=== PATIENT | female | born 1985 | race Caucasian/White ===

== ENCOUNTER → 2017-11-24 10:36 | Outpatient (CLI) | payer OTHER, SELFPAY ==
[2017-11-24 13:22] LABS: Absolute Lymphocyte Count 2.84 X10^3/ul (0.83-4.51); Absolute Neutrophil Count 3.8 X10^3/uL (2.0-7.7); Basophil# 0.02 X10^3/uL; Basophil% 0.3 % (0-1); Eosinophil# 0.07 X10^3/uL; Hematocrit 37.7 % (37-47); Hemoglobin 12.4 g/dl (12.0-15.0); Lymphocyte # 2.84 X10^3/ul (4.0); Lymphocyte % 40.8 % (19-41); Mean Corp Hgb Conc 32.9 g/gl (32-36); Mean Corpuscular Hgb 31.5 pg (27.0-32.0); Mean Corpuscular Volume 95.7 fL (81-99); Mean Platelet Vol. 10.9 fl (6.2-12.0); Monocyte# 0.23 X10^3/uL; Monocyte% 3.3 % (0-10); Neutrophil # 3.79 X10^3/uL (2.7-7.7); Neutrophil % 54.5 % (47-70); Platelet Count 216 K/mm3 (150-450); RBC Distribution Width CV 12.1 % (11.6-14.6); RBC Distribution Width SD 42.1 fl (35.1-43.9); Red Blood Count 3.94 M/mm3 (4.2-5.4)
[2017-11-24 13:35] LABS: POSITIVE COUNT NO; POSITIVE DIFFERENTIAL NO; POSITIVE MORPHOLOGY NO
[2017-11-24 13:39] LABS: Thyroid Stim Hormone (TSH) 1.26 uIU/mL (0.358-3.74)
== END ==
PROVIDERS: Visit Provider Nurse Practitioner Women's Health
DX: N92.1 Excessive and frequent menstruation with irregular cycle (principal)
CPT/HCPCS: 36415; 84443; 85025

== ENCOUNTER → 2017-11-29 12:30 | Outpatient (CLI) | payer OTHER, SELFPAY ==
--- NOTE | 2017-11-29 12:32 | US_ITS ---
STUDY: ULTRASOUND OF THE FEMALE PELVIS - COMPLETE REASON FOR EXAM: Female, 32 years old. Dysfunctional uterine bleeding LMP: November 20, 2017 TECHNIQUE: Transabdominal and Transvaginal TECHNICAL QUALITY: Adequate. COMPARISON: None. FINDINGS: The uterus is anteverted and is in a midline position. The uterus measures 8.4 x 5.7 x 3.9 cm. There is a Nabothian cyst of the cervix. The endometrium measures 4 mm in thickness, and is hyperechoic. There is no demonstrated endometrial mass. There is a prominent appearance of the inferior aspect of the uterus with an isodense appearing somewhat vascular region measuring 2.4 x 2.0 cm suggesting probable fibroid. I.U.D. - The patient does not have an I.U.D. The right ovary is visualized. The right ovary measures 1.4 x 1.8 x 2.0 cm. There is no right ovarian cyst or ovarian mass. There is no visualized right adnexal mass or complex lesion. There is normal arterial and normal venous vascularity. The left ovary is visualized. The left ovary measures 2.0 x 1.2 x 1.4 cm. There is no left ovarian cyst or ovarian mass. There is no visualized left adnexal mass or complex lesion. There is normal arterial and normal venous vascularity. There is no fluid in the cul-de-sac. The pre void volume of the bladder was 208 ml. Polycystic ovary disease: No. US/Pelvic (Non ) IMPRESSION: Probable fibroid measuring 2.4 x 2.0 cm. Normal appearing endometrium. The technologist describes that the patient was very tender and that the exam was limited by patient's pain. Recommend correlation with laboratory values and clinical exam. Electronically Signed: Audrey Sanderson MD at 18:00 EDT Tel , Service support ,
--- NOTE | 2017-11-29 12:32 | US_ITS ---
STUDY: ULTRASOUND OF THE FEMALE PELVIS - COMPLETE REASON FOR EXAM: Female, 32 years old. Dysfunctional uterine bleeding LMP: November 20, 2017 TECHNIQUE: Transabdominal and Transvaginal TECHNICAL QUALITY: Adequate. COMPARISON: None. FINDINGS: The uterus is anteverted and is in a midline position. The uterus measures 8.4 x 5.7 x 3.9 cm. There is a Nabothian cyst of the cervix. The endometrium measures 4 mm in thickness, and is hyperechoic. There is no demonstrated endometrial mass. There is a prominent appearance of the inferior aspect of the uterus with an isodense appearing somewhat vascular region measuring 2.4 x 2.0 cm suggesting probable fibroid. I.U.D. - The patient does not have an I.U.D. The right ovary is visualized. The right ovary measures 1.4 x 1.8 x 2.0 cm. There is no right ovarian cyst or ovarian mass. There is no visualized right adnexal mass or complex lesion. There is normal arterial and normal venous vascularity. The left ovary is visualized. The left ovary measures 2.0 x 1.2 x 1.4 cm. There is no left ovarian cyst or ovarian mass. There is no visualized left adnexal mass or complex lesion. There is normal arterial and normal venous vascularity. There is no fluid in the cul-de-sac. The pre void volume of the bladder was 208 ml. Polycystic ovary disease: No. US/Transvaginal Non- IMPRESSION: Probable fibroid measuring 2.4 x 2.0 cm. Normal appearing endometrium. The technologist describes that the patient was very tender and that the exam was limited by patient's pain. Recommend correlation with laboratory values and clinical exam. Electronically Signed: Audrey Sanderson MD at 18:00 EDT Tel , Service support ,
== END ==
PROVIDERS: Visit Provider Nurse Practitioner Women's Health
DX: N92.1 Excessive and frequent menstruation with irregular cycle (principal); N88.8 Other specified noninflammatory disorders of cervix uteri
CPT/HCPCS: 76830; 76856; 93976

== ENCOUNTER → 2017-12-08 15:05 | Outpatient (CLI) | payer OTHER, SELFPAY ==
--- NOTE | 2017-12-08 12:00 | EMB_PTH ---
PATIENT: CAROLYN ARCE LOC: [facility] U#:[id number] AGE/SX: 39/F ROOM: RE12/08/[address]: Dr. Kiki Kellogg MD : 1985 BED: DIS: SPEC #: [id number] RECD: 12/08/17 15:05 STATUS: BETY NAOMIE #: [id number] DEANN: 12/08/17 12:[address]: Kiki Kellogg DEPT: SURGICAL PATHOLOGY RECD BY: Rashid Wade ENTERED: 12/09/17 09:27 SP TYPE: ENDOM BX/C RODO DR: Dr. Alicia Quinn DO Tissues: Endometrium, NOS Procedures: Surgery Specimen Level IV HEADER OPERATION: Endometrial biopsy PRE-OP DIAGNOSIS: Abnormal uterine bleeding TISSUE SUBMITTED: Endometrium MICROSCOPIC DIAGNOSIS Endometrial biopsy: Weakly proliferative endometrium. Chronic endometritis. SJ:raj 12/10/17 MICROSCOPIC DESCRIPTION Slides are reviewed. GROSS DESCRIPTION Received in fixative is one container labeled with the patient's name and not further designated. The specimen consists of multiple dark brown fragments measuring in aggregate 1.2 x 1 x 0.2 totally submitted in one cassette. /AM:sp 12/09/17 TC: 3 CPT: 50409
== END ==
PROVIDERS: Visit Provider Obstetrics & Gynecology
DX: N93.9 Abnormal uterine and vaginal bleeding, unspecified (principal)
CPT/HCPCS: 88305

== ENCOUNTER 2018-02-17 08:21 | Day surgery (SDC) | payer OTHER, SELFPAY ==
--- NOTE | 2018-02-17 08:21 | DT_ITS ---
This patient was seen during an EMR downtime February 14, 2018 - February 21, 2018. This patient may have a combination of paper and electronic documentation or all paper documentation. All documentation is viewable within the e-chart portion of [employer] for each patient visit.
--- NOTE | 2018-02-17 10:34 | HYST_PTH ---
PATIENT: CAROLYN ARCE LOC: [facility] U#:[id number] AGE/SX: 32/F ROOM: RE02/17/[address]: Dr. Kiki Kellogg MD : 1985 BED: DIS: 02/18/2018 SPEC #: [id number] RECD: 02/17/18 12:20 STATUS: BETY NAOMIE #: [id number] DEANN: 02/17/18 10:[address]: Kiki Kellogg DEPT: SURGICAL PATHOLOGY RECD BY: Rashid Wade ENTERED: 02/18/18 08:54 SP TYPE: HYSTERECT OTHR DR: Dr. Alicia Quinn, DO Tissues: Uterus, NOS Procedures: Surgery Specimen Level V HEADER OPERATION: Total vaginal hysterectomy, bilateral salpingectomy PRE-OP DIAGNOSIS: Abnormal uterine bleeding TISSUE SUBMITTED: Uterus, cervix, bilateral fallopian tubes MICROSCOPIC DIAGNOSIS Uterus, cervix and bilateral fallopian tubes: Cervix ? chronic inflammation. Endometrium ? weakly proliferative endometrium. Myometrium ? focal superficial adenomyosis. Bilateral fallopian tubes ? focal mild chronic inflammation. BRIGITTE:radha 02/19/18 MICROSCOPIC DESCRIPTION Slides are reviewed. GROSS DESCRIPTION Received in fixative is one container labeled with the patient's name and designated uterus, cervix, bilateral fallopian tubes. The specimen consists of a hysterectomy specimen consisting of uterus with cervix and detached bilateral fallopian tubes. The uterus with cervix weighs 72 gm and measures 8 x 5 x 4 cm. The serosal surface is doss, glistening. The ectocervical mucosa is unremarkable. The external os is oval in contour. The endocervical canal measures 3 cm in length and the endocervical mucosa is unremarkable. The triangular endometrial cavity measures 4 cm in length and 2 cm in width. The endometrium is doss, glistening and measures 0.1 cm in thickness. Sections of the uterine wall do not reveal any lesions and measures up to 2.5 cm in thickness. The fallopian tubes show fimbrial ends and are not identified as right or left and measures 3 cm in length and 0.6 cm in diameter. Sections do not reveal any mass lesions. [employer] sections are submitted in eight cassettes as follows: 1 - anterior cervix, 2 - posterior cervix, 3 & 4 - anterior uterine wall, 5 & 6 - posterior uterine wall, 7 & 8 ? fallopian tubes, entirely submitted with each cassette containing one fallopian tube. / BRIGITTE:radha 02/17/18 TC:5 [facility]: [id number]
[2018-02-18 18:00] LABS: Hematocrit 42.5 % (37-47); Hemoglobin 14.3 g/dl (12.0-15.0); Mean Corp Hgb Conc 33.6 g/gl (32-36); Mean Corpuscular Hgb 31.9 pg (27.0-32.0); Mean Corpuscular Volume 94.9 fL (81-99); Mean Platelet Vol. 11.3 fl (6.2-12.0); Platelet Count 222 K/mm3 (150-450); RBC Distribution Width CV 12.4 % (11.6-14.6); RBC Distribution Width SD 42.4 fl (35.1-43.9); Red Blood Count 4.48 M/mm3 (4.2-5.4); Scan Indicated on CBC? Y/N NO; White Blood Count 6.9 K/mm3 (4.4-11.0)
[2018-02-19 12:02] LABS: Internal QC Validated? YES +Cl - CLEAR BKGD; Pregnancy, Urine Negative Negative
[2018-02-21 18:25] LABS: Hematocrit 34.1 % (37-47); Hemoglobin 11.7 g/dl (12.0-15.0); Mean Corp Hgb Conc 34.3 g/gl (32-36); Mean Corpuscular Hgb 31.8 pg (27.0-32.0); Mean Corpuscular Volume 92.7 fL (81-99); Mean Platelet Vol. 10.6 fl (6.2-12.0); Platelet Count 198 K/mm3 (150-450); RBC Distribution Width CV 12.5 % (11.6-14.6); RBC Distribution Width SD 42.4 fl (35.1-43.9); Scan Indicated on CBC? Y/N NO
== END 2018-02-18 11:15 | disposition home or self-care (01) ==
LOC: SDC 08:23 → AC 08:23 → MS3 02-18 08:34
PROVIDERS: Visit Provider Obstetrics & Gynecology
PROC: (CPT 58260; principal; 2018-02-17 09:45)
DX: N72 Inflammatory disease of cervix uteri (principal); N80.0 Endometriosis of uterus; N93.9 Abnormal uterine and vaginal bleeding, unspecified; Z87.891 Personal history of nicotine dependence; F32.9 Major depressive disorder, single episode, unspecified
CPT/HCPCS: 00944; 58262; 36415; 81025; 85027; 86850; 86900; 88307; J7120; A4216; J2405

== ENCOUNTER → 2018-05-18 15:55 | Outpatient (CLI) | payer OTHER, SELFPAY | PROVIDERS: Visit Provider Nurse Practitioner Women's Health | DX: R10.2 Pelvic and perineal pain (principal) | CPT/HCPCS: 87070; 87205 ==

== ENCOUNTER → 2018-06-01 12:30 | Outpatient (CLI) | payer OTHER, SELFPAY ==
--- NOTE | 2018-06-01 12:31 | US_ITS ---
STUDY: ULTRASOUND OF THE FEMALE PELVIS - COMPLETE REASON FOR EXAM: Female, 32 years old. Pain, status post hysterectomy. LMP: TECHNIQUE: Transvaginal TECHNICAL QUALITY: Adequate. COMPARISON: None. FINDINGS: Status post hysterectomy The right ovary is visualized. The right ovary measures 4.4 x 3.2 x 2.3 cm. There is a 1.5 x 1.4 x 1.4 cm right ovarian cyst or dominant follicle. There is no visualized right adnexal mass or complex lesion. There is normal arterial and normal venous vascularity. The left ovary is visualized. The left ovary measures 1.8 x 1.1 x 0.9 cm. There is no left ovarian cyst or ovarian mass. There is no visualized left adnexal mass or complex lesion. There is normal arterial and normal venous vascularity. There is no fluid in the cul-de-sac. Polycystic ovary disease: No. US/Transvaginal Non- IMPRESSION: posthysterectomy. No adnexal masses, large pelvic fluid or ovarian torsion. Dominant follicle right ovary. Electronically Signed: Love Cooley MD at 8:08 EDT , Service support ,
--- NOTE | 2018-06-01 12:31 | US_ITS ---
STUDY: ULTRASOUND OF THE FEMALE PELVIS - COMPLETE REASON FOR EXAM: Female, 32 years old. Pain, status post hysterectomy. LMP: TECHNIQUE: Transvaginal TECHNICAL QUALITY: Adequate. COMPARISON: None. FINDINGS: Status post hysterectomy The right ovary is visualized. The right ovary measures 4.4 x 3.2 x 2.3 cm. There is a 1.5 x 1.4 x 1.4 cm right ovarian cyst or dominant follicle. There is no visualized right adnexal mass or complex lesion. There is normal arterial and normal venous vascularity. The left ovary is visualized. The left ovary measures 1.8 x 1.1 x 0.9 cm. There is no left ovarian cyst or ovarian mass. There is no visualized left adnexal mass or complex lesion. There is normal arterial and normal venous vascularity. There is no fluid in the cul-de-sac. Polycystic ovary disease: No. US/Pelvic (Non ) IMPRESSION: posthysterectomy. No adnexal masses, large pelvic fluid or ovarian torsion. Dominant follicle right ovary. Electronically Signed: Love Cooley MD at 8:08 EDT , Service support ,
== END ==
PROVIDERS: Visit Provider Nurse Practitioner Women's Health
DX: R10.2 Pelvic and perineal pain (principal)
CPT/HCPCS: 76830; 76856; 93976